=== PATIENT | male | born 2000 | race Two or more races ===

== ENCOUNTER 2020-11-23 04:31 | Emergency (ER) | payer OTHER ==
[~2020-11-23] VITALS: Ht 182.9 cm; Wt 117.9 kg
[2020-11-23 04:38] VITALS: BP 124/72
[2020-11-23] MEDS ORDERED: ONDANSETRON 4 MG TAB.RAPDIS ONE (04:41)
[2020-11-23] MEDS: ONDANSETRON 4 MG TAB.RAPDIS SL ONE (04:44)
[2020-11-23] MEDS ORDERED: ONDA4TAB5 PO (04:46)
== END 2020-11-23 05:18 | disposition home or self-care (01) ==
LOC: ER 04:36
DX: F19.10 Other psychoactive substance abuse, uncomplicated (principal); R11.2 Nausea with vomiting, unspecified
CPT/HCPCS: 99283; Q0162